=== PATIENT | male | born 1975 | race Caucasian/White ===

== ENCOUNTER 2020-10-12 10:18 | Emergency (ER) | payer MEDICAID, SELFPAY ==
--- NOTE | ~2020-10-12 | XR_ITS ---
EXAMINATION: XR WRIST, LEFT WITH SCAPHOID CLINICAL INFORMATION: Pain. COMPARISON: None TECHNIQUE: AP, oblique, lateral, and scaphoid views of the left wrist. FINDINGS: No acute fracture or dislocation. Normal carpal alignment. No joint space narrowing or marginal osteophytes. No osseous erosion. No abnormal soft tissue calcification. XR/XR wrist LT w scaphoid IMPRESSION: Unremarkable examination.
[2020-10-12 10:21] VITALS: BP 146/83; PULSE 82; RESP 18; TEMP 36.8; O2SAT 98; BMI 33.9
--- NOTE | 2020-10-12 11:03 | ED_ITS ---
HPI - General Adult General Chief complaint: Fall Stated complaint: fall Time Seen by Provider: 10/12/20 11:03 Source: patient Limitations: no limitations History of Present Illness HPI narrative: Patient presents to the ER complaining of left wrist pain and right-sided lower back pain after falling on wooden stairs late last night. Patient states stairs when when he fell negative loss of consciousness. Patient has not been vaccinated for COVID-19. Pain is 8/10 increased with palpation or range of motion. Patient denies loss consciousness headache nausea vomiting. Patient denies any past medical history is taking no current medications. Related Data Previous Rx's Medication Instructions Recorded methocarbamol 750 mg PO TID PRN #20 tab 10/12/20 naproxen [Naprosyn] 500 mg PO BID PRN #30 tab 10/12/20 tramadol 50 mg PO TID PRN #20 tab 10/12/20 Allergies Allergy/AdvReac Type Severity Reaction Status Date / Time No Known Allergies Allergy Verified 10/12/20 10:23 Review of Systems Constitutional: Constitutional: Denies chills, Denies fatigue, Denies fever(s) and Denies headache(s) Eyes: Eyes: Denies diplopia and Denies loss of vision ENT: Denies headache(s) Cardiovascular: Cardiovascular: Denies chest pain and Denies dyspnea Respiratory: Respiratory: Denies cough and Denies dyspnea Gastrointestinal: Gastrointestinal: Denies diarrhea, Denies nausea and Denies vomiting Musculoskeletal: Musculoskeletal: Denies numbness Comments: Left wrist pain right lower back pain Right shoulder pain Integumentary/Breasts: Comments: Abrasion right lower back Neurologic: Denies headache(s), Denies loss of vision and Denies numbness Comments: Negative loss of consciousness Hematologic/Lymphatic: Hematologic/Lymphatic: Denies easy bleeding PMFSH Past Medical History Attestation statement: The following information was validated with the patient. Medical History No known health problems Social History Social History Advance Directives: No Advance Directives Information Provided: No Physical Exam Vital Signs: Vital Signs: Last Vital Signs Temp 98.2 F 10/12/20 10:21 Pulse 82 10/12/20 10:21 Resp 18 10/12/20 10:21 BP 146/83 H 10/12/20 10:21 Pulse Ox 98 10/12/20 10:21 Body Mass Index 33.9 vital signs have been reviewed as normal and appeared to be correct. Blood pressure normal. Heart rate normal. Respiration rate normal. Temperature normal. Oxygen saturation normal. Appearance: Alert. Oriented X3. No acute distress. Head: Normal external exam. Normocephalic. Atraumatic. No Melchor signs noted. No raccoon eyes noted Eyes: PERRLA. EOMI. Conjunctiva and sclera normal. Eyelids normal. ENT: Pharynx normal. Uvula midline. Moist mucous membranes. Neck: Soft full range of motion CVS: Heart regular rate and rhythm no murmurs and rubs Respiratory: Breath sounds are clear to auscultation bilaterally. No accessory muscle use noted. Back: Positive paraspinal muscle tenderness of the right paraspinal muscles no midline tenderness slight abrasion noted right lower and right upper back. Skin: Skin is warm and dry. Extremities: Positive tenderness left wrist distal ulna full range of motion positive. Positive pulses and sensation. Right shoulder and no crepitus full range of motion. Neuro: Oriented X 3. No motor deficit. No sensory deficit. Patient has no ataxia patient is ambulatory Course Course Course Narrative: Left wrist fracture Left wrist contusion Right lower back contusion Right-sided lumbar strain Right shoulder contusion Patient has multiple complaints from fall left wrist x-rays negative. No midline tenderness on back exam will treat with analgesics at this time follow- up Medical Decision Making Imaging Data wrist: Attestation: I personally reviewed and interpreted this imaging study as follows: Radiologist's impression: [address] [id number] ReportSigned Patient: Nnamdi SchmidMR#: [id number]: [id number]:[id number]/Sex: 45 / MADM Date: 10/12/20Loc: [email or web address].EDAttending Dr: Ordering Physician: Generic ED Physician Date of Service: 10/12/20 Procedure(s): XR wrist LT w scaphoid Accession Number(s): [id number] cc: Generic ED Physician~ EXAMINATION: XR WRIST, LEFT WITH SCAPHOID CLINICAL INFORMATION: Pain. COMPARISON: None TECHNIQUE: AP, oblique, lateral, and scaphoid views of the left wrist. FINDINGS: No acute fracture or dislocation. Normal carpal alignment. No joint space narrowing or marginal osteophytes. No osseous erosion. No abnormal soft tissue calcification. XR/XR wrist LT w scaphoid IMPRESSION: Unremarkable examination. Dictated By:KHLOE BLANCO MDSigned By:<Electronically signed by KHLOE BLANCO MD in [place]>10/12/20 1037 DD/ 1031TD/TT: Wet Pan Operator: Discharge Plan Discharge Clinical Impression: Wrist contusion, Lumbar contusion Patient Disposition: Home, Self-Care Instructions: Contusion in Adults (ED) Additional Instructions: Rest ice Medication as directed Return if symptoms worsen Prescriptions: New tramadol 50 mg tablet 50 mg PO TID PRN (Reason: pain) Qty: 20 RF: 0 methocarbamol 750 mg tablet 750 mg PO TID PRN (Reason: muscle spasm) Qty: 20 RF: 0 naproxen [Naprosyn] 500 mg tablet 500 mg PO BID PRN (Reason: pain) Qty: 30 RF: 0
== END 2020-10-12 11:31 | disposition home or self-care (01) ==
LOC: HO.ED 11:15
PROVIDERS: Emergency Provider Emergency Medicine
DX: S60.212A Contusion of left wrist, initial encounter (principal); S30.0XXA Contusion of lower back and pelvis, initial encounter; W10.9XXA Fall (on) (from) unspecified stairs and steps, initial encounter; Y93.9 Activity, unspecified; Y92.9 Unspecified place or not applicable; Y99.9 Unspecified external cause status
CPT/HCPCS: 73110; 99283